=== PATIENT | female | born 1995 | race Caucasian/White ===

== ENCOUNTER 2017-04-17 01:51 | Emergency (ER) | payer OTHER ==
[~2017-04-17] VITALS: Ht 157.5 cm; Wt 81.6 kg
[2017-04-17 02:04] VITALS: Ht 157.5 cm; Wt 81.6 kg
[2017-04-17 04:39] VITALS: BP 101/67
== END 2017-04-17 04:39 | disposition left against medical advice (07) ==
LOC: ED 01:51
DX: R10.9 Unspecified abdominal pain (principal); R11.10 Vomiting, unspecified; R19.7 Diarrhea, unspecified
CPT/HCPCS: 36415; J2270; J2405; J7030